=== PATIENT | female | born 1960 | race Hispanic/Latino ===

== ENCOUNTER → 2024-12-24 | Outpatient (CLI) | payer OTHER ==
--- NOTE | 2024-12-25 10:47 | HMCIMG ---
EXAM: CT Cardiac calcium scoring. CLINICAL HISTORY: Screening. TECHNIQUE: Thin collimated axial CT cardiac images were obtained. A CT scan is done according to ALARA (As Low As Reasonably Achievable). CONTRAST: None. COMPARISON: None provided. FINDINGS: Calcium Score: VESSEL Number of lesions Volume mm3 Equi. Mass/mg Calcium score LM 0 0 - 0 LAD 2 13.4 - 21.0 LCX 1 36.2 - 43.2 RCA 1 27.5 - 38.8 Total 4 77.0 - 103.1 IMPRESSION: The total calcium score is 103.1. 80th percentile. /Jackson
== END | disposition home or self-care (01) ==
LOC: RAH 15:09
PROVIDERS: ATTEND Internal Medicine Cardiovascular Disease
DX: Z13.6 Encounter for screening for cardiovascular disorders (principal)
CPT/HCPCS: 75571